=== PATIENT | male | born 1960 | race Caucasian/White ===

== ENCOUNTER 2017-01-16 20:27 | Emergency (ER) | payer MEDICARE, OTHER ==
[~2017-01-16] VITALS: Ht 190.5 cm; Wt 81.6 kg
[2017-01-16 20:39] VITALS: BP 133/84
--- NOTE | 2017-01-16 20:55 | NUR ---
XRAY AT BS
== END 2017-01-16 21:43 | disposition home or self-care (01) ==
LOC: ER 20:27
DX: M25.531 Pain in right wrist (principal); G89.29 Other chronic pain; N40.0 Benign prostatic hyperplasia without lower urinary tract symptoms; F17.200 Nicotine dependence, unspecified, uncomplicated
CPT/HCPCS: 29125; 73110; 99284; A4606; Z7610